=== PATIENT | male | born 1995 | race Caucasian/White ===

== ENCOUNTER 2017-06-29 10:06 | Emergency (ER) | payer OTHER ==
[2017-06-29] MEDS ORDERED: PREDNISONE 20 MG TABLET PO ONE (11:44)
[2017-06-29] MEDS ORDERED: IPRATROPIUM/ALBUTEROL 0.5-2.5 MG/3 ML AMPUL NEB ONE (11:44)
--- NOTE | 2017-06-29 11:46 | ER Document Report ---
ED General - General Chief Complaint: Breathing Difficulty Stated Complaint: DIFFICULTY BREATHING Time Seen by Provider: 06/29/17 11:42 Mode of Arrival: Ambulatory Information source: Patient Notes: 22-year-old male presents with complaints of difficulty breathing. Patient has had shortness of breath nonproductive cough for 2 day duration. Patient states he gets bronchitis often Patient denies any fevers or chills denies any nausea vomiting or diarrhea states yesterday he was mildly productive but today is not dry TRAVEL OUTSIDE OF THE [place] IN LAST 30 DAYS: No - HPI Onset: Yesterday Onset/Duration: Persistent Quality of pain: Achy Severity: Mild Pain Level: 1 Associated symptoms: Nonproductive cough, Shortness of breath Exacerbated by: Movement, Walking, Coughing Relieved by: Denies Similar symptoms previously: Yes Recently seen / treated by doctor: No - Related Data Allergies/Adverse Reactions: No Known Allergies Allergy (Verified 06/29/17 10:07) Past Medical History - Social History Smoking Status: Never Smoker Cigarette use (# per day): No Chew tobacco use (# tins/day): No Smoking Education Provided: No Family History: Reviewed & Not Pertinent Review of Systems - Review of Systems Notes: REVIEW OF SYSTEMS: CONSTITUTIONAL : Denies fever, chills, or sweats. Denies recent illness. EENT: Denies eye, ear, throat, or mouth pain or symptoms. Denies nasal or sinus congestion or discharge. Denies throat, tongue, or mouth swelling or difficulty swallowing. CARDIOVASCULAR: Denies chest pain. Denies palpitations or racing or irregular heart beat. Denies ankle edema. RESPIRATORY: Admits to cough shortness of breath GASTROINTESTINAL: Denies abdominal pain or distention. Denies nausea, vomiting , or diarrhea. Denies blood in vomitus, stools, or per rectum. Denies black, tarry stools. Denies constipation. GENITOURINARY: Denies difficulty urinating, painful urination, burning, frequency, blood in urine, or discharge. MUSCULOSKELETAL: Denies back or neck pain or stiffness. Denies joint pain or swelling. SKIN: Denies rash, lesions or sores. HEMATOLOGIC : Denies easy bruising or bleeding. LYMPHATIC: Denies swollen, enlarged glands. NEUROLOGICAL: Denies confusion or altered mental status. Denies passing out or loss of consciousness. Denies dizziness or lightheadedness. Denies headache. Denies weakness or paralysis or loss of use of either side. Denies problems with gait or speech. Denies sensory loss, numbness, or tingling. Denies seizures. PSYCHIATRIC: Denies anxiety or stress. Denies depression, suicidal ideation, or homicidal ideation. ALL OTHER SYSTEMS REVIEWED AND NEGATIVE. Dictation was performed using [employer] voice recognition software PHYSICAL EXAMINATION: GENERAL: Well-appearing, well-nourished and in no acute distress. HEAD: Atraumatic, normocephalic. EYES: Pupils equal round and reactive to light, extraocular movements intact, sclera anicteric, conjunctiva are normal. ENT: Nares patent, oropharynx clear without exudates. Moist mucous membranes. NECK: Normal range of motion, supple without lymphadenopathy LUNGS: Expiratory expiratory wheezing all throughout with abdominal intercostal retractions HEART: Regular rate and rhythm without murmurs ABDOMEN: Soft, nontender, nondistended abdomen. No guarding, no rebound. No masses appreciated. Musculoskeletal: Normal range of motion, no pitting or edema. No cyanosis. NEUROLOGICAL: Cranial nerves grossly intact. Normal speech, normal gait. Normal sensory, motor exams PSYCH: Normal mood, normal affect. SKIN: Warm, Dry, normal turgor, no rashes or lesions noted. Physical Exam - Vital signs Vitals: Temp Pulse Resp BP Pulse Ox 98.5 F 90 24 H 150/69 H 94 06/29/17 10:13 06/29/17 10:13 06/29/17 10:13 06/29/17 10:13 06/29/17 10:13 Course - Re-evaluation Re-evalutation: 06/29/17 11:46 Patient will be given breathing treatments immediately initial O2 sat was 94%, 06/29/17 13:32 Patient looks much better is in no distress, lungs are clear I will discharge home as x-ray is normal as well patient has no DVT PE risk factors After performing a Medical Screening Examination, I estimate there is LOW risk for ACUTE CORONARY SYNDROME, PULMONARY EMBOLI, RESPIRATORY FAILURE, SEPSIS OR MENINGITIS, thus I consider the discharge disposition reasonable. I have reevaluated this patient multiple times and no significant life threatening changes are noted. The patient and I have discussed the diagnosis and risks, and we agree with discharging home with close follow-up. We also discussed returning to the Emergency Department immediately if new or worsening symptoms occur. We have discussed the symptoms which are most concerning (e.g., changing or worsening pain, trouble swallowing or breathing, neck stiffness, fever) that necessitate immediate return. - Vital Signs Vital signs: Temp Pulse Resp BP Pulse Ox 98.5 F 90 24 H 150/69 H 94 06/29/17 10:13 06/29/17 10:13 06/29/17 10:13 06/29/17 10:13 06/29/17 10:13 - Diagnostic Test Radiology reviewed: Image reviewed, Reports reviewed Discharge - Discharge Clinical Impression: Bronchitis, Wheezing Condition: Stable Instructions: Bronchitis ([facility]), Bronchitis With Bronchospasm (Wheezing) ([facility]) Additional Instructions: Follow up with your physician tomorrow for further care or return to the ED IMMEDIATELY if symptoms worsen or new concerns occur. If you cannot afford to follow up with your primary care physician a list of low cost clinics have been provided at the end of your discharge papers as well. Prescriptions: Prednisone [Deltasone 20 mg Tablet] 3 tab PO DAILY 4 Days tablet
--- NOTE | 2017-06-29 13:17 | RADIOLOGY REPORT (SQ) ---
EXAM DESCRIPTION: CHEST PA/LAT COMPLETED DATE/TIME: 06/29/2017 1:09 pm REASON FOR STUDY: difficulty breathing COMPARISON: None. EXAM PARAMETERS: NUMBER OF VIEWS: two views TECHNIQUE: Digital Frontal and Lateral radiographic views of the chest acquired. RADIATION DOSE: NA LIMITATIONS: none FINDINGS: LUNGS AND PLEURA: No opacities, masses or pneumothorax. No pleural effusion. MEDIASTINUM AND HILAR STRUCTURES: No masses or contour abnormalities. HEART AND VASCULAR STRUCTURES: Heart normal size. No evidence for failure. BONES: No acute findings. HARDWARE: None in the chest. OTHER: No other significant finding. IMPRESSION: NO SIGNIFICANT RADIOGRAPHIC FINDING IN THE CHEST. TECHNICAL DOCUMENTATION: JOB ID: [id number] [employer]- All Rights Reserved
[2017-06-29] MEDS ORDERED: ALBUTEROL SULFATE HFA (90 MCG/PUFF) 8 GM MDI (1 MDI/ER DISP) IH PRN (13:33)
[2017-06-29 13:52] VITALS: BP 108/52
== END 2017-06-29 13:46 | disposition home or self-care (01) ==
LOC: ER 10:06
DX: J40 Bronchitis, not specified as acute or chronic (principal); R06.02 Shortness of breath; R05 Cough; R06.2 Wheezing
CPT/HCPCS: 94640; 99284; 71046; J7512; J3490; J7620

== ENCOUNTER 2017-08-05 15:40 | Emergency (ER) | payer OTHER ==
[2017-08-05] MEDS ORDERED: IPRATROPIUM BROMIDE 0.02% NEB 0.5 MG/2.5 ML AMPUL NEB ONE (15:52)
[2017-08-05] MEDS ORDERED: PREDNISONE 20 MG TABLET PO ONE (15:52)
[2017-08-05] MEDS ORDERED: ALBUTEROL SULFATE 0.083% NEB 2.5 MG/3 ML AMPUL NEB ONE ×2 (15:52→18:17)
[2017-08-05] MEDS ORDERED: PREDNISONE 20 MG TABLET ONE (15:54)
--- NOTE | 2017-08-05 16:15 | ER Document Report ---
ED Medical Screen (RME) - General Chief Complaint: Asthma Exacerbation Stated Complaint: DIFFUCULTY BREATHING Time Seen by Provider: 08/05/17 15:51 Mode of Arrival: Ambulatory Information source: Patient Notes: 22 y.o male presents to the ED with difficulty breathing and wheezing. Pt was seen here in June of this year and diagnosed with bronchitis and was given an inhaler for wheezing but has ran out of his inhaler and has not used any medications today. He denies any hx of asthma prior to the bronchitis this past June. I have greeted and performed a rapid initial assessment of the patient. A comprehensive ED assessment and evaluation of the patient, analysis of test results, and completion of the medical decision making process will be conducted by additional ED providers. TRAVEL OUTSIDE OF THE [place] IN LAST 30 DAYS: No - Related Data Allergies/Adverse Reactions: No Known Allergies Allergy (Verified 08/05/17 15:45) Past Medical History - General Information source: Patient - Social History Frequency of alcohol use: Occasional Drug Abuse: None Pulmonary Medical History: Reports: Hx Bronchitis Renal/ Medical History: Denies: Hx Peritoneal Dialysis Review of Systems - Review of Systems Constitutional: No symptoms reported EENT: No symptoms reported Cardiovascular: No symptoms reported Respiratory: See HPI, Short of breath, Wheezing Gastrointestinal: No symptoms reported Genitourinary: No symptoms reported Male Genitourinary: No symptoms reported Musculoskeletal: No symptoms reported Skin: No symptoms reported Hematologic/Lymphatic: No symptoms reported Neurological/Psychological: No symptoms reported -: Yes All other systems reviewed and negative Physical Exam - Vital signs Vitals: Temp Pulse Resp BP Pulse Ox 98.2 F 95 26 H 146/75 H 95 08/05/17 15:44 08/05/17 15:44 08/05/17 15:44 08/05/17 15:44 08/05/17 15:44 - Notes Notes: Physical Exam: General: Alert, appears well. HEENT: Normocephalic. Atraumatic. PERRLA. Extraocular movements intact. Oropharynx clear. Neck: Supple. Respiratory: Wheezing, prolonged expiratory expiration. Abdominal: Normal Inspection. No distension. Extremities: Moves all four extremities. Neurological: Normal cognition. AAOx4. Normal speech. Psychological: Normal affect. Normal Mood. Skin: Warm. Dry. Normal color. Course - Vital Signs Vital signs: Temp Pulse Resp BP Pulse Ox 98.2 F 95 26 H 146/75 H 95 08/05/17 15:44 08/05/17 15:44 08/05/17 15:44 08/05/17 15:44 08/05/17 15:44 Scribe Documentation - Scribe Written by Latasha:: Latasha Fournier 08/05/17 1613 acting as scribe for :: Zeb
--- NOTE | 2017-08-05 16:30 | ER Document Report ---
ED Respiratory Problem - General Chief Complaint: Asthma Exacerbation Stated Complaint: DIFFUCULTY BREATHING Time Seen by Provider: 08/05/17 15:51 Mode of Arrival: Ambulatory Information source: Patient TRAVEL OUTSIDE OF THE [place] IN LAST 30 DAYS: No - HPI Patient complains to provider of: Asthma, Short of breath Onset: Other - FEW DAYS Duration: Intermittent episodes Initiating Event: Other - NOTHING OUT OF THE ORDINARY. Quality of pain: No pain Context: Hx asthma - INFREQUENT Short of Breath: Moderate Cough: Nonproductive Sputum amount: None Associated symptoms: Cough, Short of breath, Wheezing. denies: Chills, Fever Similar symptoms previously: Yes - NOT RECENT Recently seen / treated by doctor: No - Related Data Allergies/Adverse Reactions: No Known Allergies Allergy (Verified 08/05/17 15:45) Past Medical History - General Information source: Patient - Social History Smoking Status: Never Smoker Cigarette use (# per day): No Chew tobacco use (# tins/day): No Frequency of alcohol use: Occasional Drug Abuse: None Lives with: Spouse/Significant other Family History: Reviewed & Not Pertinent Patient has suicidal ideation: No Patient has homicidal ideation: No - Past Medical History Cardiac Medical History: Reports: None Pulmonary Medical History: Reports: Hx Bronchitis EENT Medical History: Reports: None Neurological Medical History: Reports: None Endocrine Medical History: Reports: None Renal/ Medical History: Reports: None. Denies: Hx Peritoneal Dialysis Malignancy Medical History: Reports None GI Medical History: Reports: None Musculoskeltal Medical History: Reports None Psychiatric Medical History: Reports: None Surgical Hx: Negative Review of Systems - Review of Systems Constitutional: No symptoms reported. denies: Chills, Fever EENT: No symptoms reported Cardiovascular: No symptoms reported Respiratory: See HPI Gastrointestinal: No symptoms reported Genitourinary: No symptoms reported Musculoskeletal: No symptoms reported Skin: No symptoms reported Neurological/Psychological: No symptoms reported Physical Exam - Vital signs Vitals: Temp Pulse Resp BP Pulse Ox 98.2 F 95 26 H 146/75 H 95 08/05/17 15:44 08/05/17 15:44 08/05/17 15:44 08/05/17 15:44 08/05/17 15:44 Interpretation: Hypertensive, Tachypneic. No: Tachycardic, Hypoxic, Febrile - General General appearance: Appears well, Alert In distress: None - HEENT Head: Normocephalic Eyes: Normal Conjunctiva: Normal Ears: Normal Nasal: Normal Mouth/Lips: Normal Mucous membranes: Normal - Respiratory Respiratory status: No respiratory distress Breath sounds: Wheezing, Other - PROLONGED EXP. PHASE - Cardiovascular Rhythm: Regular Heart sounds: Normal auscultation Murmur: No - Abdominal Inspection: Normal Distension: No distension Bowel sounds: Normal - Back Back: Normal - Extremities General upper extremity: Normal inspection General lower extremity: Normal inspection - Neurological Neuro grossly intact: Yes Cognition: Normal Orientation: AAOx4 - Psychological Associated symptoms: Normal affect, Normal mood - Skin Skin Temperature: Warm Skin Moisture: Dry Skin Color: Normal Skin Turgor: Elastic Course - Re-evaluation Re-evalutation: 08/05/17 18:45 Patient states he is "much better". Breathing easily, no wheezes heard in any lung silverman. No expiratory prolongation. - Vital Signs Vital signs: Temp Pulse Resp BP Pulse Ox 98.2 F 95 14 145/83 H 97 08/05/17 15:44 08/05/17 15:44 08/05/17 17:33 08/05/17 17:33 08/05/17 17:33 Discharge - Discharge Clinical Impression: Asthmatic bronchitis Qualifiers: Asthma severity: unspecified severity Asthma persistence: unspecified Asthma complication type: uncomplicated Qualified Code(s): J45.909 - Unspecified asthma , uncomplicated Condition: Stable Disposition: HOME, SELF-CARE Instructions: Bronchitis With Bronchospasm (Wheezing) ([facility]), Inhaled Bronchodilators ([facility]), Corticosteroid Medication ([facility]) Additional Instructions: MEDS DIRECTED. AVOID ALL DUST, SMOKE, AND FUMES MUCH POSSIBLE. FOLLOW UP WITH PRIMARY CARE PROVIDER OF YOUR CHOICE FOR CONTINUING ROUTINE CARE. RETURN TO E.R. IF YOU GET WORSE IN ANY WAY, ANY TIME. Prescriptions: Albuterol Sulfate [Proair HFA] 2 inh IH Q4HP PRN #1 [id number] PRN Reason: For Wheezing Prednisone [Deltasone 10 mg Tablet] 10 mg PO ASDIR PRN #21 tablet PRN Reason:
[2017-08-05 18:49] VITALS: BP 150/71
== END 2017-08-05 18:49 | disposition home or self-care (01) ==
LOC: ER 15:40
DX: J45.909 Unspecified asthma, uncomplicated (principal)
CPT/HCPCS: 94640 ×2; 99284; J7512; J3490